=== PATIENT | male | born 1990 | race Caucasian/White ===

== ENCOUNTER 2017-08-17 13:15 | Emergency (ER) | payer SELFPAY ==
[~2017-08-17] VITALS: Ht 180.3 cm; Wt 77.3 kg
[~2017-08-17 13:15] MED LIST: CEPHALEXIN250 M1 PO; NO HOME MEDICATIONS
[2017-08-17 14:05] LABS: COLLECTION METHOD RANDOM VOIDED
[2017-08-17 14:19] LABS: MUCOUS Present /lpf; PH 6 (5-8); SQUAMOUS EPITHELIAL None Seen /hpf; URINE APPEARANCE Cloudy; URINE BACTERIA None Seen /hpf; URINE BILIRUBIN Negative (NEGATIVE); URINE BLOOD 2+ (NEGATIVE); URINE COLOR Yellow; URINE GLUCOSE Negative (NEGATIVE); URINE KETONE Negative (NEGATIVE); URINE LEUKOCYTE ESTERASE 3+ (NEGATIVE); URINE NITRATE Negative (NEGATIVE); URINE PROTEIN(semi-quant) 2+ (NEGATIVE); URINE RBC >50 /hpf; URINE UROBILINOGEN >=4.0 mg/dL (NEGATIVE)
[2017-08-17] MEDS ORDERED: DOXYCYCLINE 10100 MG PO (15:55)
[2017-08-17 16:29] VITALS: BP 129/68; PULSE 90; TEMP 97.5
== END 2017-08-17 16:28 | disposition home or self-care (01) ==
LOC: COL.ER 13:15
PROVIDERS: Physician Assistant Medical
DX: N45.1 Epididymitis (principal)
CPT/HCPCS: J0696

== ENCOUNTER 2019-02-23 17:08 | Emergency (ER) | payer SELFPAY ==
[~2019-02-23] VITALS: Ht 177.8 cm; Wt 72.7 kg
[~2019-02-23 17:08] MED LIST changes: +DOXYCYCLINE 10100 MG PO
[2019-02-23 17:28] VITALS: BP 130/83; TEMP 97.6
[2019-02-23] MEDS ORDERED: AMOXICILLIN 8751 TAB PO (20:23)
[2019-02-23 20:36] VITALS: PULSE 91
== END 2019-02-23 20:36 | disposition home or self-care (01) ==
LOC: COL.ER 17:08
DX: K05.6 Periodontal disease, unspecified (principal); K04.7 Periapical abscess without sinus; F17.210 Nicotine dependence, cigarettes, uncomplicated
CPT/HCPCS: Q9967

== ENCOUNTER 2020-11-04 20:06 | Emergency (ER) | payer SELFPAY ==
[~2020-11-04] VITALS: Ht 177.8 cm; Wt 72.7 kg
[~2020-11-04 20:06] MED LIST changes: +AMOXICILLIN 8751 TAB PO
[2020-11-04 21:01] LABS: BASO % 0.3 % (0.0-2.0); EOS # 0.1 (0.0-0.7); EOS % 0.8 % (0-4.0); GRAN # 11.3 (1.4-6.5); GRAN % 80.7 % (42.2-75.2); HEMATOCRIT 47.2 % (42.0-52.0); HEMOGLOBIN 15.7 g/dl (13.5-18.0); LYMPH # 1.7 (1.2-3.4); LYMPH % 12.4 % (20.0-51.0); MEAN CELL VOLUME 92 fl (80.0-100.0); MEAN CORPUSCULAR HEMOGLOBIN 30 pg (27.0-31.0); MEAN CORPUSCULAR HGB CONC 33 g/dl (33.0-37.0); MEAN PLATELET VOLUME 9.7 fl (7.4-10.4); MONO # 0.8 (0.1-0.6); MONO % 5.4 % (1.7-9.3); PLATELET COUNT 267 K/mm3 (130-400); RED BLOOD COUNT 5.16 M/mm3 (4.20-5.60); REDCELL DISTRIBUTION WIDTH-CV 12.3 % (11.5-14.5)
[2020-11-04 21:32] LABS: ALBUMIN 4.2 gm/dL (3.5-5.0); BILIRUBIN,TOTAL 1.3 mg/dL (0.0-1.0); C-REACTIVE PROTEIN 6.3 mg/dL (0.0-0.9); CALCIUM 9.1 mg/dL (8.4-10.2); CREATININE, serum 0.76 (0.66-1.25); POTASSIUM 3.9 mmol/L (3.4-5.0); TOTAL PROTEIN 7.7 gm/dL (6.4-8.2)
[2020-11-04 21:37] LABS: ERYTHROCYTE SEDIMENTATION RATE 7 mm/hr (0-15)
[2020-11-04 21:42] LABS: COLLECTION METHOD RANDOM VOIDED
[2020-11-04 22:07] LABS: MUCOUS Present /lpf; PH 5 (5-8); SQUAMOUS EPITHELIAL 0-2 /hpf; URINE APPEARANCE Hazy; URINE BACTERIA None Seen /hpf; URINE BILIRUBIN Negative (NEGATIVE); URINE BLOOD Negative (NEGATIVE); URINE COLOR Yellow; URINE GLUCOSE Negative (NEGATIVE); URINE KETONE Negative (NEGATIVE); URINE LEUKOCYTE ESTERASE 3+ (NEGATIVE); URINE NITRATE Negative (NEGATIVE); URINE PROTEIN(semi-quant) 1+ (NEGATIVE); URINE UROBILINOGEN Negative (NEGATIVE); URINE WBC >50 /hpf
[2020-11-05] MEDS ORDERED: LEVAQUIN 5500 MG/TA1 PO (00:39)
[2020-11-05] MEDS ORDERED: DOXYCYCLINE 10100 MG PO (00:39)
[2020-11-05] MEDS ORDERED: NARCAN4 MG NS (00:45)
[2020-11-05] MEDS ORDERED: ZOFRAN ODT4 MG PO (00:45)
[2020-11-05] MEDS ORDERED: NORCO 325 MG-51 TAB PO (00:45)
[2020-11-05 00:59] VITALS: BP 142/89; PULSE 85; TEMP 98.7
[2020-11-06] MEDS ORDERED: PRINCIPEN500 MG PO (12:10)
== END 2020-11-05 00:58 | disposition home or self-care (01) ==
LOC: COL.ER 20:06
PROVIDERS: Emergency Medicine
DX: N45.3 Epididymo-orchitis (principal)
CPT/HCPCS: J0696; J1885; J2270; J2405; J7030; Q9967

== ENCOUNTER 2020-11-09 14:16 | Day surgery (SDC) | payer SELFPAY ==
[~2020-11-09] VITALS: Ht 177.8 cm; Wt 66.6 kg
[~2020-11-09 14:16] MED LIST changes: +LEVAQUIN 5500 MG/TA1 PO; +NARCAN4 MG NS; +NORCO 325 MG-51 TAB PO; +PRINCIPEN500 MG PO; +ZOFRAN ODT4 MG PO
[2020-11-09 15:48] VITALS: BP 114/76; PULSE 96; TEMP 99.6
[2020-11-09] MEDS ORDERED: MOTRIN 800800 MG/TAB PO (16:13)
--- NOTE | 2020-11-09 19:10 | NUR ---
Report received from HUE Shafer in post-op. Patient was brought to the floor and post-op vitals were initiated. Patient is doing well and states that his pain is a 3/10. The pain is "nothing like it was before" and just feels like a stretching pain. Lung sounds were clear to auscultation bilaterally. Heart sounds were normal w/ no extra sounds. VSS since arriving to the floor. Patient able to move all limbs freely without any difficulty. Patient is A&Ox4. Patient ordered supper and is eager to eat. All dressings are intact, with a minimal amount of drainage, approx. dime sized on the bandaging. Scrotal sling is in place. Report given to oncoming shift mgr RNRhianna.
[2020-11-09 19:44] VITALS: BP 119/77; PULSE 89; TEMP 98.4
[2020-11-09 19:59] VITALS: BP 119/82; PULSE 78; TEMP 98.4
[2020-11-09 20:14] VITALS: BP 121/73; PULSE 89; TEMP 98.3
[2020-11-09 20:29] VITALS: BP 121/73; PULSE 89; TEMP 98.3
--- NOTE | 2020-11-09 21:19 | NUR ---
Discharge instructions given to patient, patient is alert, oriented x 4, ambulated in hallways, tolerated full general diet w/o difficulty, states he is less pain than he was before, incision site wnl, patient urinated w/o difficulty, all belongings with patient, reviewed all discharge instructions and patient verbalized understanding. Assisted via wheelchair to family car with family.
== END 2020-11-09 21:00 | disposition home or self-care (01) ==
LOC: INPTSU 14:16 → SURG 14:16 → INPTSU 14:16 → SDCO 14:16 → EDSTATUS 16:00 → INPTSU 18:30 → SURG 18:30 → SDCO 21:00
DX: N50.1 Vascular disorders of male genital organs (principal); N50.812 Left testicular pain; N50.89 Other specified disorders of the male genital organs; N45.2 Orchitis; N50.82 Scrotal pain; F17.210 Nicotine dependence, cigarettes, uncomplicated; Z20.822 Contact with and (suspected) exposure to COVID-19; Z79.899 Other long term (current) drug therapy
CPT/HCPCS: OP; J1100; J1885; J2270; J2405; J2704; J3010; J7120